=== PATIENT | male | born 1960 | race Caucasian/White ===

== ENCOUNTER 2018-03-17 14:59 | Emergency (ER) | payer MEDICAID, OTHER ==
[2018-03-17] MEDS ORDERED: Sodium Chloride 0.9% 10 ML Syringe FLUSH PRN (16:56)
[2018-03-17] MEDS ORDERED: Lactated Ringers 1,000 ML IV SCH (17:00)
[2018-03-17] MEDS ORDERED: Prochlorperazine 10 MG/2 ML SDV IVPUSH ONE (17:06)
--- NOTE | 2018-03-17 17:09 | EDM.PDOC ---
<OfficerRichard - Last Filed: 03/17/18 18:18> ED HPI GENERAL MEDICAL PROBLEM - General Chief Complaint: General Stated Complaint: SHAKY, DIZZY Time Seen by Provider: 03/17/18 16:41 Source of Information: Reports: Patient, Family ( he is unstable), Provider, RN Notes Reviewed (Plus he has C Cam Walker) History Limitations: Reports: No Limitations - History of Present Illness INITIAL COMMENTS - FREE TEXT/NARRATIVE: 57-year-old gentleman presents to the emergency department sent over from clinic for further evaluation. He initially had dizzy symptoms on March 13 of these did resolve dizzy symptoms returned again yesterday and if progressively gotten worse he presented to clinic today for evaluation did discuss with clinic provider she sent him to the emergency department for further evaluation. He describes the dizziness as an inability to walk straight he doesn 't describe much for room spinning he has had some nausea did receive some Zofran in the clinic with some help - Related Data Allergies Allergy/AdvReac Type Severity Reaction Status Date / Time No Known Allergies Allergy Verified 03/17/18 15:59 Home Meds: Home Meds NK [No Known Home Meds] 03/17/18 [History] Past Medical History Endocrine/Metabolic History: Reports: Hypothyroidism Dermatologic History: Reports: Psoriasis Social & Family History - Tobacco Use Smoking Status *Q: Current Every Day Smoker Years of Tobacco use: 40 Packs/Tins Daily: 1.5 - Caffeine Use Caffeine Use: Reports: Coffee - Recreational Drug Use Recreational Drug Use: No ED ROS GENERAL - Review of Systems Review Of Systems: See Below Constitutional: Reports: No Symptoms HEENT: Reports: Vertigo Respiratory: Reports: No Symptoms Cardiovascular: Reports: No Symptoms GI/Abdominal: Reports: No Symptoms : Reports: No Symptoms Musculoskeletal: Reports: No Symptoms Skin: Reports: No Symptoms Neurological: Reports: Difficulty Walking ED EXAM, GENERAL - Physical Exam Exam: See Below Free Text/Narrative:: General: Male, not in any distress, alert and oriented x3 HEENT: head is atraumatic normocephalic, eyes pupils equal round reactive to light, sclera clear no conjunctivitis appreciated, extraocular eye movements are intact. Ears tympanic membranes clear and benito landmarks and light reflex are present bilaterally canals are clear. Nose no septal deviation, nares are clear, no blood present. Mouth mucosa is moist and pink no erythema or exudate noted in soft palate, tongue is midline uvula is midline, dentition is intact. Neck: Supple no thyromegaly no tracheal deviation. Nodes: Cervical nodes subclavicular nodes nontender no palpable lymphadenopathy noted. Lungs: clear to auscultation bilaterally with symmetrical respirations, no adventitious noise appreciated. CV: Regular rate and rhythm S1 and S2 appreciated no murmurs rubs or gallops noted. Abdomen: Soft, nontender, no palpable masses or organomegaly appreciated, no distention no guarding bowel sounds are present, Neuro: Cranial nerves II test with pupillary light reflex 4 mm to 2 mm bilaterally, CN III test pupillary constriction, lid elevation and eye abduction bilaterally, CN IV downward movement of eyes bilaterally, CN V good jaw movement, CN lateral deviation of the eyes bilaterally to finger movement , CN VII symmetrical smile shows teeth without difficulty, CN VIII pass finger rub to ears bilaterally, CN IX adequate voice and tone, CN X adequate voice and tone no difficulty swallowing, CN XI can shrug shoulders without difficulty, CN XII can stick tongue out without difficulty, cranial nerves II to XII intact as tested, power is 5 out 5 in upper and lower extremities, patellar reflex, biceps reflex +2 can do finger to nose without difficulty, no dysdiadochokinesis , no difficulty with rapid alternating movements can do [id number] without difficulty, Romberg is negative, has adequate gait, has difficulty with heel to toe walk Head impulse test: Positive loss of fixation with corrective saccades when head turned to the left Nystagmus: unidirectional, horizontal 6-beating nystagmus left direction faster than right direction Skew deviation: grossly absent Skin: Warm and dry, intact Extremities: No lower extremity edema appreciated, Course - Vital Signs Last Recorded V/S: Last Vital Signs Temp 35.6 C 03/17/18 15:59 Pulse 72 03/17/18 18:24 Resp 16 03/17/18 18:24 BP 137/83 03/17/18 18:24 Pulse Ox 97 03/17/18 18:24 Orthostatic Blood Pressure [ 161/96 Standing] Orthostatic Blood Pressure [ 157/92 Sitting] Orthostatic Blood Pressure [ 163/97 Supine] - Orders/Labs/Meds Orders: Active Orders 24 hr Category Date Time Status EKG Documentation Completion [RC] ASDIRECTED Care 03/17/18 17:01 Active Orthostatic Vital Signs [RC] ASDIRECTED Care 03/17/18 19:22 Active Peripheral IV Care [RC] . DIRECTED Care 03/17/18 16:57 Active Ang Head [CT] Urgent Exams 03/17/18 16:56 Taken T3 FREE [CHEM] Stat Lab 03/17/18 19:23 Ordered T4 FREE [CHEM] Stat Lab 03/17/18 19:24 Ordered Lactated Ringers [Ringers, Lactated] 1,000 ml Med 03/17/18 17:00 Active IV ASDIRECTED Sodium Chloride 0.9% [Saline Flush] Med 03/17/18 16:56 Active 10 ml FLUSH ASDIRECTED PRN Peripheral IV Insertion Adult [OM.PC] Urgent Oth 03/17/18 16:56 Ordered EKG 12 Lead [EK] Routine Ther 03/17/18 17:00 Ordered Medication Orders Lactated Ringer's (Ringers, Lactated) 1,000 mls @ 125 mls/hr IV ASDIRECTED SONAL Last Admin: 03/17/18 17:20 Dose: 125 mls/hr Sodium Chloride (Saline Flush) 10 ml FLUSH ASDIRECTED PRN PRN Reason: Keep Vein Open Last Admin: 03/17/18 17:19 Dose: 10 ml Labs: Laboratory Tests 03/17/18 03/17/18 03/17/18 Range/Units 17:00 17:08 17:12 WBC 10.7 (4.5-11.0) K/uL RBC 5.12 (4.30-5.90) M/uL Hgb 15.7 H (12.0-15.0) g/dL Hct 46.4 (40.0-54.0) % MCV 91 (80-98) fL MCH 31 (27-31) pg MCHC 34 (32-36) % Plt Count 239 (150-400) K/uL Neut % (Auto) 82 H (36-66) % Lymph % (Auto) 11 L (24-44) % [place] % (Auto) 6 (2-6) % Eos % (Auto) 1 L (2-4) % Baso % (Auto) 0 (0-1) % ESR 9 (0-20) mm/hr Sodium (140-148) mmol/L Potassium (3.6-5.2) mmol/L Chloride (100-108) mmol/L Carbon Dioxide (21-32) mmol/L Anion Gap (5.0-14.0) mmol/L BUN (7-18) mg/dL Creatinine (0.8-1.3) mg/dL Est Cr Clr Drug Dosing mL/min Estimated GFR (MDRD) (>60) Glucose (74-106) mg/dL Calcium (8.5-10.1) mg/dL Total Bilirubin (0.2-1.0) mg/dL AST (15-37) U/L ALT (12-78) U/L Alkaline Phosphatase (46-116) U/L Total Protein (6.4-8.2) g/dL Albumin (3.4-5.0) g/dL Globulin (2.3-3.5) g/dL Albumin/Globulin Ratio (1.2-2.2) TSH, Ultra Sensitive 15.044 H (0.358-3.740) uIU/mL 03/17/18 Range/Units 17:12 WBC (4.5-11.0) K/uL RBC (4.30-5.90) M/uL Hgb (12.0-15.0) g/dL Hct (40.0-54.0) % MCV (80-98) fL MCH (27-31) pg MCHC (32-36) % Plt Count (150-400) K/uL Neut % (Auto) (36-66) % Lymph % (Auto) (24-44) % [place] % (Auto) (2-6) % Eos % (Auto) (2-4) % Baso % (Auto) (0-1) % ESR (0-20) mm/hr Sodium 129 L (140-148) mmol/L Potassium 4.2 (3.6-5.2) mmol/L Chloride 92 L (100-108) mmol/L Carbon Dioxide 28 (21-32) mmol/L Anion Gap 13.2 (5.0-14.0) mmol/L BUN 9 (7-18) mg/dL Creatinine 1.0 (0.8-1.3) mg/dL Est Cr Clr Drug Dosing 82.48 mL/min Estimated GFR (MDRD) > 60 (>60) Glucose 116 H (74-106) mg/dL Calcium 9.6 (8.5-10.1) mg/dL Total Bilirubin 0.3 (0.2-1.0) mg/dL AST 20 (15-37) U/L ALT 29 (12-78) U/L Alkaline Phosphatase 91 (46-116) U/L Total Protein 7.5 (6.4-8.2) g/dL Albumin 4.0 (3.4-5.0) g/dL Globulin 3.5 (2.3-3.5) g/dL Albumin/Globulin Ratio 1.1 L (1.2-2.2) TSH, Ultra Sensitive (0.358-3.740) uIU/mL Meds: Medications Generic Name Dose Route Start Last Admin Trade Name Freq PRN Reason Stop Dose Admin Lactated Ringer's 1,000 mls @ 125 mls/hr 03/17/18 17:00 03/17/18 17:20 Ringers, Lactated IV 125 mls/hr ASDIRECTED SONAL Administration Sodium Chloride 10 ml 03/17/18 16:56 03/17/18 17:19 Saline Flush FLUSH 10 ml ASDIRECTED PRN Administration Keep Vein Open Discontinued Medications Generic Name Dose Route Start Last Admin Trade Name Freq PRN Reason Stop Dose Admin Sodium Chloride 80 mls @ 3.5 mls/sec 03/17/18 17:25 03/17/18 17:58 Normal Saline IV 03/17/18 17:26 3.5 mls/sec ONETIME ONE Administration Iopamidol 100 ml 03/17/18 17:30 03/17/18 17:58 Isovue-370 (76%) IV 03/17/18 17:31 80 ml . DIRECTED SONAL Administration Meclizine HCl 25 mg 03/17/18 18:14 03/17/18 18:23 Antivert PO 03/17/18 18:15 25 mg ONETIME ONE Administration Ondansetron HCl 4 mg 03/17/18 19:01 03/17/18 19:11 Zofran IVPUSH 03/17/18 19:02 4 mg ONETIME ONE Administration Prochlorperazine Edisylate 5 mg 03/17/18 17:06 03/17/18 17:19 Compazine IVPUSH 03/17/18 17:07 5 mg ONETIME ONE Administration Sodium Chloride 10 ml 03/17/18 17:25 03/17/18 17:58 Saline Flush FLUSH 03/17/18 17:26 10 ml ONETIME ONE Administration Departure - Departure Disposition: Home, Self-Care 01 Clinical Impression: Hypothyroid, Hyponatremia, Inner ear dysfunction - Discharge Information Referrals: Tami Ambrose NP [Primary Care Provider] - Forms: ED Department Discharge Care Plan Goals: follow up appt for hypothyroid, synthroid 25 mcg 1 tab daily, anticvert 25 mg tid for the next 2-3 days, low activity, Pt should not work until vertigo is better. zoforan 4mg q6g prn for nausea. Copy lab work from today to take to [facility] in follow up, - My Orders Last 24 Hours: My Active Orders 03/17/18 19:22 Orthostatic Vital Signs [RC] ASDIRECTED 03/17/18 19:23 T3 FREE [CHEM] Stat 03/17/18 19:24 T4 FREE [CHEM] Stat - Assessment/Plan Last 24 Hours: My Active Orders 03/17/18 19:22 Orthostatic Vital Signs [RC] ASDIRECTED 03/17/18 19:23 T3 FREE [CHEM] Stat 03/17/18 19:24 T4 FREE [CHEM] Stat Plan: Assessment Acuity = acute Site and laterality = vestibular neuritis Etiology = unknown etiology Manifestations = nausea Location of injury = Home Lab values = CBC unremarkable sodium low at 129 consistent hyponatremia EKG demonstrates a sinus rhythm nonspecific T-wave changes CT scan of the head shows no acute process CTA shows no evidence of hemorrhage vessels appear to be patent no convincing evidence of narrowing or aneurysm formation Plan Try meclizine 25 mg by mouth This note was dictated using [employer]oom voice recognition software please call with any questions on syntax or grammar. <Fide Stanford - Last Filed: 03/17/18 19:43> Course - Re-Assessments/Exams Free Text/Narrative Re-Assessment/Exam: 03/17/18 19:36 pt continued to be nauseated and he was given more zoforan. Hehad a neg head cta. His tyroid was checked and he is quite hypothyroid with a tsh of 15. He had a t3 and t4 drawn. He has been on tyroid meds in the past and stopped it on his own. His bp is boederline high. He clearly has vertigo which is felt to be related to a inner ear disturbance. Departure - Departure Time of Disposition: 19:39 Condition: Fair
[2018-03-17] MEDS ORDERED: Sodium Chloride 0.9% 10 ML Syringe FLUSH ONE (17:25)
[2018-03-17] MEDS ORDERED: Sodium Chloride 0.9% 80 ML IV ONE (17:25)
[2018-03-17] MEDS ORDERED: Iopamidol 755 Mg/ML 100 ML Bottle IV SCH (17:30)
[2018-03-17] MEDS ORDERED: Meclizine 25 MG Tab PO ONE (18:14)
[2018-03-17] MEDS ORDERED: Ondansetron 4 MG/2 ML SDV IVPUSH ONE (19:01)
== END 2018-03-17 20:00 | disposition home or self-care (01) ==
LOC: JP.ED 14:59
DX: H93.3X9 Disorders of unspecified acoustic nerve (principal); H83.2X9 Labyrinthine dysfunction, unspecified ear; E03.9 Hypothyroidism, unspecified; E87.1 Hypo-osmolality and hyponatremia
CPT/HCPCS: 36415; 70496; 80053; 84439; 84443; 84481; 85025; 85651; 93005; 96361; 96374; 96375; 99285; A9270; J0780; J2405; J7030; J7120; Q9967